=== PATIENT | male | born 1965 | race Caucasian/White ===

== ENCOUNTER → 2018-03-04 14:31 | Outpatient (CLI) | payer BC ==
[2014-12-26 10:26] VITALS: BMI 26.1
[~2018-03-04 14:31] MED LIST: ADVIL200 MG PO; HYDROCODON-ACE1 EAC7 PO; NORVASC5 MG PO
== END | disposition home or self-care (01) ==
LOC: D.MRI 14:31
DX: M25.512 Pain in left shoulder (principal)

== ENCOUNTER 2018-03-18 08:05 | Day surgery (SDC) | payer BC ==
[2018-03-15 10:56] LABS: BASOPHILS 0.5 % (0-2); EOSINOPHILS 1.7 % (0-7); HEMATOCRIT 44.7 % (42.0-54.0); HEMOGLOBIN 15.6 g/dL (13.5-17.5); LYMPHOCYTES 24.3 % (15-50); MCH 30.1 pg (26.0-34.0); MCHC 34.9 g/dL (31.0-37.0); MCV 86.1 fL (80.0-100.0); MEAN PLATELET VOLUME 9.9 fL (7.4-10.4); MONOCYTES 9.2 % (2-11); NEUTROPHILS 64.3 % (40-80); PLATELET COUNT 276 10x3/uL (130-400); RBC 5.19 10x6/uL (4.20-6.10); RDW 12.4 % (11.5-14.5)
[2018-03-15 11:12] LABS: CALC OSMOLALITY 278 mosm/kg (275-300); CALCIUM 8.8 mg/dL (8.5-10.1); CARBON DIOXIDE 29.9 mmol/L (21.0-32.0); CHLORIDE - SERUM 105 mmol/L (98-107); CREATININE - SERUM 0.9 mg/dL (0.6-1.3); GLUCOSE 95 mg/dL (74-106); POTASSIUM - SERUM 3.9 mmol/L (3.5-5.1); SODIUM 140 mmol/L (136-145); UREA NITROGEN 12 mg/dL (7-18); eGFR NON AFRICAN AMERICAN > 90 mL/min (90-120)
[~2018-03-18] VITALS: Ht 193 cm; Wt 91.6 kg
[2018-03-18 08:53] VITALS: BP 127/95; Ht 193 cm; Wt 91.6 kg
== END 2018-03-18 17:41 | disposition home or self-care (01) ==
LOC: D.OPS 08:05 → D.PAN 09:15 → D.OPS 09:15
PROVIDERS: Orthopaedic Surgery
DX: M75.42 Impingement syndrome of left shoulder (principal); M13.812 Other specified arthritis, left shoulder; M75.122 Complete rotator cuff tear or rupture of left shoulder, not specified as traumatic; Z01.812 Encounter for preprocedural laboratory examination